=== PATIENT | male | born 1965 | race American Indian/Alaskan Native ===

== ENCOUNTER 2016-10-17 14:36 | Emergency (ER) | payer MEDICAID, OTHER ==
[2016-10-17 14:36] VITALS: BMI 21.7
[2016-10-17 14:47] VITALS: RESP 18
[2016-10-17 15:40] LABS: BASO % 0.9 % (0.0-2.0); EOS # 0.1 K/uL (0.0-0.7); EOS % 3.4 % (0.0-4.0); HEMATOCRIT 45.4 % (35.0-51.0); LYMPH # 0.8 K/uL (1.0-4.3); LYMPH % 17.8 % (20.0-40.0); MEAN CELL VOLUME 93.9 fL (80.0-94.0); MEAN CORPUSCULAR HEMOGLOBIN 30.6 pg (27.0-31.0); MEAN CORPUSCULAR HGB CONC 32.5 g/dL (33.0-37.0); MEAN PLATELET VOLUME 10.1 fL (7.2-11.7); MONO # 0.4 K/uL (0.0-0.8); MONO % 9.1 % (0.0-10.0); NRBC % 0.3 % (0.0-2.0); RED CELL DISTRIBUTION WIDTH 13.7 % (11.5-14.5); WHITE BLOOD COUNT 4.2 K/uL (4.8-10.8)
[2016-10-17] MEDS ORDERED: Sodium Chloride 0.9% 1,000 ML IV ONE (15:43)
[2016-10-17 15:48] LABS: CHLORIDE 89 mmol/L (98-107); POTASSIUM 3.6 mmol/L (3.6-5.2); SODIUM 135 mmol/L (132-148)
[2016-10-17 15:50] LABS: AST/SGOT 135 U/L (17-59); BILIRUBIN,TOTAL 1.3 mg/dL (0.2-1.3); CARBON DIOXIDE 24 mmol/L (22-30); GFR AFRICAN-AMERICAN > 60; TOTAL PROTEIN 9.1 g/dL (6.3-8.3)
[2016-10-17 15:51] LABS: ALB/GLOB RATIO 1.1 (1.0-2.1); ALCOHOL SERUM < 10 mg/dl (0-10); ALKALINE PHOSPHATASE 74 U/L (38-126); ALT/SGPT 90 U/L (21-72); BLOOD UREA NITROGEN 15 mg/dL (9-20); CALCIUM 9.8 mg/dl (8.6-10.4); GLUCOSE,RANDOM 193 mg/dL (75-110)
--- NOTE | 2016-10-17 16:56 | CT ---
PROCEDURE: CT HEAD WITHOUT CONTRAST. HISTORY: hx subdural now dizzy COMPARISON: Noncontrast head CT performed 09/24/15 TECHNIQUE: Axial computed tomography images were obtained through the head/brain without intravenous contrast. Radiation dose: Total exam DLP = 815.71 mGy-cm. FINDINGS: HEMORRHAGE: No intracranial hemorrhage. BRAIN: Diffuse atrophy with prominence of the ventricles and sulci noted. No mass effect or edema. Scattered white matter hypodensities, which are nonspecific, but often seen with chronic microvascular ischemic disease. Please note that MRI with diffusion imaging is more sensitive in the detection of acute ischemic event. VENTRICLES: No hydrocephalus. CALVARIUM: Unremarkable. PARANASAL SINUSES: Unremarkable as visualized. No significant inflammatory changes. MASTOID AIR CELLS: Unremarkable as visualized. No inflammatory changes. 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 IMPRESSION: Generalized atrophy. Mild nonspecific white matter changes.
--- NOTE | 2016-10-17 17:20 | C.PDOC ---
History Of Present Illness 51-year-old male, presents to the emergency department with complaints of feeling light headed and dizzy. Patient states he took his seizure medication ( unknown name) for the first time because he felt like he was about to have a seizure, but symptoms continued, resulting in him coming to the ED for evaluation. Patient also notes that yesterday, he had several episodes of nausea w/ non-bilious/non-bloody vomiting and diarrhea, but has not had either since last evening. Denies fevers, chills, chest pain, abdominal pain, or any other associated symptoms. Patient reports daily drinking. Denies drugs or abdominal surgeries. Patient refused a craniotomy for subdural hematoma two years ago. Time Seen by Provider: 10/17/16 15:34 Chief Complaint (Nursing): Dizziness/Lightheaded History Per: Patient History/Exam Limitations: no limitations Onset/Duration Of Symptoms: Days Current Symptoms Are (Timing): Still Present Past Medical History Reviewed: Historical Data, Nursing Documentation, Vital Signs Vital Signs: Last Vital Signs Temp 98.2 F 10/17/16 14:45 Pulse 90 10/17/16 14:45 Resp 18 10/17/16 14:45 BP 130/80 10/17/16 14:45 Pulse Ox 100 10/17/16 17:47 - Medical History PMH: Seizures Family History: States: Unknown Family Hx - Social History Hx Alcohol Use: Yes Hx Substance Use: No Review Of Systems Except As Marked, All Systems Reviewed And Found Negative. Constitutional: Negative for: Fever, Chills Respiratory: Negative for: Cough, Shortness of Breath Gastrointestinal: Positive for: Nausea, Vomiting, Diarrhea Musculoskeletal: Negative for: Back Pain Skin: Negative for: Rash Neurological: Positive for: Dizziness. Negative for: Weakness, Numbness, Headache Physical Exam - Physical Exam Appears: Non-toxic, No Acute Distress Skin: Warm, Dry, No Rash Head: Atraumatic, Normacephalic Eye(s): bilateral: Normal Inspection, PERRL, EOMI Oral Mucosa: Moist Lips: Normal Appearing Neck: Normal ROM Cardiovascular: Rhythm Regular Respiratory: Normal Breath Sounds, No Rales, No Rhonchi Back: Normal Inspection Extremity: Normal ROM Neurological/Psych: Oriented x3, Normal Speech, Normal Cognition ED Course And Treatment - Laboratory Results Result Diagrams: 10/17/16 15:35 10/17/16 15:35 O2 Sat by Pulse Oximetry: 100 - CT Scan/US Head Other Rad Studies (CT/US): Radiology Report Reviewed CT/US Interpretation: IMPRESSION: Generalized atrophy. Mild nonspecific white matter changes. Medical Decision Making Medical Decision Making: Pt remained stable in the Ed Tolerated po Abnormal labs discussed with pt as well as stopping drinking Plan dc home Disposition Counseled Patient/Family Regarding: Diagnosis, Need For Followup - Disposition Referrals: [facility] [Outside] Disposition: HOME/ ROUTINE Disposition Time: 18:42 Condition: GOOD Instructions: Lightheadedness (ED) - Clinical Impression Clinical Impression: Dizziness, Alcohol use - Scribe Statement The provider has reviewed the documentation as recorded by the Scribsteven Santiago All medical record entries made by the Mauricioibe were at my direction and personally dictated by me. I have reviewed the chart and agree that the record accurately reflects my personal performance of the history, physical exam, medical decision making, and the department course for this patient. I have also personally directed, reviewed, and agree with the discharge instructions and disposition.
[2016-10-17 19:02] VITALS: BP 124/82; PULSE 79; TEMP 98.4; O2SAT 98
--- NOTE | 2016-10-19 15:00 | CARD ---
APPROVED REPORT EKG Measurement Heart [id number] <Conclusion> Normal sinus rhythm with sinus arrhythmia Normal ECG
== END 2016-10-17 19:03 | disposition home or self-care (01) ==
LOC: C.ER 14:36
DX: R42 Dizziness and giddiness (principal); F10.10 Alcohol abuse, uncomplicated; Y90.0 Blood alcohol level of less than 20 mg/100 ml
CPT/HCPCS: 70450; 80053; 83690; 85025; 99285; G0480; J7040